=== PATIENT | female | born 1980 | race Two or more races ===

== ENCOUNTER 2021-09-27 09:23 | Outpatient (REF) | payer OTHER, SELFPAY ==
[2021-09-27 11:02] LABS: Anion Gap 10 (12-20); Blood Urea Nitrogen 11 mg/dL (9-16); Calcium 9.1 mg/dL (8.4-10.2); Carbon Dioxide 24 mmol/L (22-29); Chloride 112 mmol/L (96-108); Estimated Glomerular Filt Rate > 60; Glucose Random 83 mg/dL (60-115); Sodium 142 mmol/L (135-145)
[2021-09-27 11:06] LABS: Erythrocyte Sedimentation Rate 11 MM/HR (0-20)
[2021-09-27 11:13] LABS: Thyroid Stimulating Hormone 0.55 uIU/mL (0.32-4.0)
[2021-09-29 05:07] LABS: Lyme Abs Screen <0.90 index
[2021-09-29 12:51] LABS: Anti Nuclear Antibody Screen NEGATIVE (NEGATIVE)
== END 2021-09-27 09:24 | disposition home or self-care (01) ==
LOC: HO.LAB 09:23
PROVIDERS: PCP Internal Medicine; Visit Provider Psychiatry & Neurology Neurology
DX: M79.7 Fibromyalgia (principal)
CPT/HCPCS: 36415; 80048; 82550; 84443; 85652; 86038; 86039; 86617; 86618

== ENCOUNTER 2021-10-25 10:42 | Outpatient (REF) | payer OTHER, SELFPAY ==
--- NOTE | ~2021-10-25 | XR_ITS ---
EXAMINATION: XR CERVICAL SPINE CLINICAL INFORMATION: Cervical spondylosis. COMPARISON: None TECHNIQUE: 5 views of the cervical spine were obtained. FINDINGS: Mild straightening of the normal cervical lordosis. No acute fracture or subluxation. Vertebral body heights are maintained. Mild disc space narrowing at C5-C6 with associated endplate osteophytes. Limited evaluation of the right bony neural foramina. The left are patent. The atlantoaxial joint is well aligned. The dens is intact. The prevertebral soft tissues are unremarkable. XR/XR cervical spine 4V IMPRESSION: Mild degenerative change of the cervical spine at C5-C6.
== END 2021-10-25 10:43 | disposition home or self-care (01) ==
LOC: HO.XRAY 10:42
PROVIDERS: Visit Provider Psychiatry & Neurology Neurology
DX: M47.812 Spondylosis without myelopathy or radiculopathy, cervical region (principal)
CPT/HCPCS: 72050